=== PATIENT | female | born 1975 | race Caucasian/White ===

== ENCOUNTER 2018-03-17 18:03 | Emergency (ER) | payer BC, MEDICAID ==
[~2018-03-17] VITALS: Ht 170.2 cm; Wt 68.2 kg
[2018-03-17] MEDS ORDERED: dextrose 50%-water 50ml dispensing syringe IV ONE (18:36)
[2018-03-17 18:59] LABS: BASOPHILS % (AUTO) 0.4 % (0-1); EOSINOPHILS # (AUTO) 0.2 X10'3 (0-0.9); EOSINOPHILS % (AUTO) 2.6 % (0-6); HEMATOCRIT 46.4 % (35.0-45.0); HEMOGLOBIN 15.4 g/dl (12.0-16.0); LYMPHOCYTES # (AUTO) 1.6 X10'3 (1.1-4.8); LYMPHOCYTES % (AUTO) 26.4 % (21-51); MEAN CORPUSCULAR HEMOGLOBIN 30.7 PG (27.0-31.0); MEAN CORPUSCULAR HGB CONC 33.1 % (33.0-36.5); MEAN CORPUSCULAR VOLUME 92.7 FL (78-98); MEAN PLATELET VOLUME 7.7 FL (7.4-10.4); MONOCYTES # (AUTO) 0.4 X10'3 (0-0.9); MONOCYTES % (AUTO) 6.1 % (2-12); NEUTROPHILS # (AUTO) 3.9 X10'3 (1.8-7.7); NEUTROPHILS % (AUTO) 64.5 % (42-75); PLATELET COUNT 379 X10'3 (140-440); RED CELL DISTRIBUTION WIDTH 15.7 % (11.5-14.5); WHITE BLOOD COUNT 6.1 X10'3 (4.5-11.0)
[2018-03-17 19:14] LABS: PARTIAL THROMBOPLASTIN TIME 27 SECONDS (22-32)
[2018-03-17 19:23] LABS: ALANINE AMINOTRANSFERASE 75 U/L (12-78); ALBUMIN 4.1 G/DL (3.4-5.0); ALKALINE PHOSPHATASE 53 IU/L (46-116); ANION GAP 14 (8-16); ASPARTATE AMINO TRANSFERASE 120 U/L (10-37); BILIRUBIN,TOTAL 0.5 MG/DL (0.1-1.0); BLOOD UREA NITROGEN 5 MG/DL (7-18); BUN/CREATININE RATIO 8.1 (6.6-38.0); CALCIUM 9.7 MG/DL (8.5-10.1); CHLORIDE 104 MMOL/L (99-107); CREATININE 0.62 MG/DL (0.40-0.90); GLUCOSE 83 MG/DL (70-104); POTASSIUM 3.9 MMOL/L (3.5-5.1); SODIUM 142 MMOL/L (135-145); TOTAL CARBON DIOXIDE 23.7 MMOL/L (24-32); TOTAL PROTEIN 8.2 G/DL (6.4-8.2); eGFR > 90 ML/MIN
[2018-03-17 19:49] LABS: COLOR,URINE YELLOW (Yellow); GLUCOSE, URINE 100 mg/dl (Neg); KETONES,URINE NEGATIVE (Neg); LEUKOCYTE ESTERASE ,URINE NEGATIVE (Neg); NITRITES, URINE POSITIVE (Neg); OCCULT BLOOD,URINE SMALL (Neg); PH,URINE 5.5 (4.8-8.0); PROTEIN,URINE NEGATIVE (Neg); URINE HCG NEGATIVE (NEG); UROBILINOGEN,URINE 0.2 E.U/dL (0.2-1.0)
[2018-03-17 19:57] LABS: CLARITY,URINE SLIGHTLY CLOUDY (Clear); UA COLLECTION TYPE VOIDED
[2018-03-17 19:58] LABS: BACTERIA,URINE 4+ /HPF (Neg); RBC,URINE 0-2 /HPF (0-2); SQUAMOUS EPITHELIAL CELL,UR FEW /LPF (FEW); WBC,URINE 0-4 /HPF (0-4)
[2018-03-17] MEDS ORDERED: normal saline 1000ML IV soln IVB ONE (20:10)
[2018-03-17] MEDS ORDERED: CefTRIAXone 2gm/D5W 50ml 50 ML IV ONE (20:10)
[2018-03-17 20:13] LABS: ACETAMINOPHEN 7.3 UG/ML (10-30); ETHANOL 0.131 GM/DL (0.0-0.010)
[2018-03-17] MEDS ORDERED: CEPH250T PO (20:18)
[2018-03-17 20:21] LABS: URINE AMPHETAMINE SCREEN POSITIVE (Neg); URINE BARBITUATE SCREEN NEGATIVE (Neg); URINE BENZODIAZEPINES SCREEN NEGATIVE (Neg); URINE CANNABINOID SCREEN NEGATIVE (Neg); URINE COCAINE SCREEN NEGATIVE (Neg); URINE METHADONE SCREEN NEGATIVE (Neg); URINE OPIATE SCREEN NEGATIVE (Neg); URINE PHENCYCLIDINE SCREEN NEGATIVE (Neg)
[2018-03-18 05:48] VITALS: BP 124/84
== END 2018-03-18 07:50 | disposition home or self-care (01) ==
LOC: ER 18:03
DX: T45.0X2A Poisoning by antiallergic and antiemetic drugs, intentional self-harm, initial encounter (principal); R45.851 Suicidal ideations; F32.9 Major depressive disorder, single episode, unspecified; F10.129 Alcohol abuse with intoxication, unspecified; N39.0 Urinary tract infection, site not specified; F15.10 Other stimulant abuse, uncomplicated; F41.9 Anxiety disorder, unspecified; Z91.040 Latex allergy status; Y92.9 Unspecified place or not applicable; Y90.0 Blood alcohol level of less than 20 mg/100 ml
CPT/HCPCS: 36415; 80053; 80305; 80320; 80329; 81001; 81025; 82948; 84443; 84484; 85025; 85610; 85730; 87077; 87088; 87186; 93005; 96365; 96375; 99285; J0696; J7030

== ENCOUNTER 2018-07-18 23:47 | Emergency (ER) | payer MEDICAID ==
[~2018-07-18] VITALS: Ht 160 cm; Wt 68.2 kg
[~2018-07-18 23:47] MED LIST: CEPH250T PO
--- NOTE | 2018-07-19 00:03 | NUR ---
SPOKE TO JORDEN AT [facility] - MONITOR FOR S\\S OF SERATONIN SYNDROME SUCH HYPERTHERMIA AND "WEIRD MOVEMENTS". GIVE CHARCOAL IF INGESTION WAS LESS THAN AN HOUR AGO. ORDER FULL LAB WORKUP TO INCLUDE ASA, APAP, ETHANOL. ALSO GET EKG
[2018-07-19] MEDS ORDERED: normal saline 1000ML IV soln IVB ONE (00:15)
--- NOTE | 2018-07-19 00:20 | NUR ---
PT REPORTS SHE IS A DAILY DRINKER AND IS WORRIED SHE WILL GO INTO WITHDRAWL. PT STATES SHE DRINKS "BEER ALL DAY" WILL NOTIFY MD - PT ON MONITORING EQUIPMENT AT THIS TIME SECONDARY TO THE OVERDOSE. VITALS WNL - NO TREMORS NOTED. PT APPEARS DROWSY BUT ABLE TO FOLLOW COMMANDS AND COOPERATIVE WITH STAFF.
[2018-07-19] MEDS ORDERED: SERT100T10 (00:23)
--- NOTE | 2018-07-19 00:34 | NUR ---
[facility] IN ER TO WRITE [id number]
[2018-07-19 00:35] LABS: ALANINE AMINOTRANSFERASE 71 U/L (12-78); ALBUMIN 4.1 G/DL (3.4-5.0); ALKALINE PHOSPHATASE 50 IU/L (46-116); ANION GAP 14 (8-16); ASPARTATE AMINO TRANSFERASE 138 U/L (10-37); BILIRUBIN,TOTAL 0.2 MG/DL (0.1-1.0); BLOOD UREA NITROGEN 10 MG/DL (7-18); BUN/CREATININE RATIO 17.2 (6.6-38.0); CALCIUM 9.2 MG/DL (8.5-10.1); CHLORIDE 101 MMOL/L (99-107); CREATININE 0.58 MG/DL (0.40-0.90); GLUCOSE 95 MG/DL (70-104); POTASSIUM 3.5 MMOL/L (3.5-5.1); SODIUM 141 MMOL/L (135-145); TOTAL CARBON DIOXIDE 26.4 MMOL/L (24-32); TOTAL PROTEIN 8.1 G/DL (6.4-8.2); eGFR > 90 ML/MIN
[2018-07-19 00:42] LABS: URINE HCG NEGATIVE (NEG)
[2018-07-19 00:45] LABS: CLARITY,URINE CLEAR (Clear); COLOR,URINE YELLOW (Yellow); GLUCOSE, URINE NEGATIVE (Neg); KETONES,URINE NEGATIVE (Neg); LEUKOCYTE ESTERASE ,URINE TRACE (Neg); NITRITES, URINE NEGATIVE (Neg); OCCULT BLOOD,URINE TRACE-INTACT (Neg); PH,URINE 5.5 (4.8-8.0); PROTEIN,URINE NEGATIVE (Neg); UROBILINOGEN,URINE 0.2 E.U/dL (0.2-1.0)
[2018-07-19 00:46] LABS: ACETAMINOPHEN < 2.0 UG/ML (10-30); ETHANOL 0.322 GM/DL (0.0-0.010)
[2018-07-19 00:46] LABS: UA COLLECTION TYPE CLN CATCH MIDSTREAM
[2018-07-19 00:48] LABS: BASOPHILS % (AUTO) 0.7 % (0-1); EOSINOPHILS # (AUTO) 0.1 X10'3 (0-0.9); EOSINOPHILS % (AUTO) 3.2 % (0-6); HEMATOCRIT 39.7 % (35.0-45.0); LYMPHOCYTES # (AUTO) 1.3 X10'3 (1.1-4.8); LYMPHOCYTES % (AUTO) 32.5 % (21-51); MEAN CORPUSCULAR HEMOGLOBIN 30.6 PG (27.0-31.0); MEAN CORPUSCULAR HGB CONC 32.8 g/dL (33.0-36.5); MEAN CORPUSCULAR VOLUME 93.5 FL (78-98); MEAN PLATELET VOLUME 7.4 FL (7.4-10.4); MONOCYTES # (AUTO) 0.3 X10'3 (0-0.9); MONOCYTES % (AUTO) 8.3 % (2-12); NEUTROPHILS # (AUTO) 2.3 X10'3 (1.8-7.7); NEUTROPHILS % (AUTO) 55.3 % (42-75); PLATELET COUNT 286 X10'3 (140-440); RED BLOOD COUNT 4.25 X10'6 (4.20-5.60); RED CELL DISTRIBUTION WIDTH 17.4 % (11.5-14.5); WHITE BLOOD COUNT 4.1 X10'3 (4.5-11.0)
[2018-07-19 00:52] LABS: BACTERIA,URINE 3+ /HPF (Neg); RBC,URINE NONE SEEN /HPF (0-2); URINE AMPHETAMINE SCREEN NEGATIVE (Neg); URINE BARBITUATE SCREEN NEGATIVE (Neg); URINE BENZODIAZEPINES SCREEN NEGATIVE (Neg); URINE CANNABINOID SCREEN NEGATIVE (Neg); URINE COCAINE SCREEN NEGATIVE (Neg); URINE METHADONE SCREEN NEGATIVE (Neg); URINE OPIATE SCREEN NEGATIVE (Neg); URINE PHENCYCLIDINE SCREEN NEGATIVE (Neg); WBC,URINE 0-4 /HPF (0-4)
[2018-07-19 00:53] LABS: SQUAMOUS EPITHELIAL CELL,UR FEW /LPF (FEW)
--- NOTE | 2018-07-19 01:00 | NUR ---
patient in bed eyes closed hard to arouse, will wait for tele psych when patient is awake and oriented, patient rr even un labored no observable s/s of acute stress at this time
[2018-07-19] MEDS ORDERED: charcoal/sorbitol 50gm/240ml suspension PO ONE (01:05)
[2018-07-19] MEDS ORDERED: ondansetron/PF 4mg/2ml inj IV ONE (01:05)
--- NOTE | 2018-07-19 03:20 | NUR ---
patient in bed covers on eyes closed rr even un labored hard to arouse no observable s/s of acute stress at this time
--- NOTE | 2018-07-19 04:31 | NUR ---
patient still hard to arouse, rr even un labored no observable s/s of acute stress at this time
--- NOTE | 2018-07-19 05:25 | NUR ---
PT REQUESTING TO HAVE IV REMOVED AND SOMETHING TO EAT. PT GIVEN JUICE AND CHEESE STICK AND TOLD BREAKFAST WILL BE SERVED IN A COUPLE OF HOURS. SAID IV WAS OK TO BE D\C'D.
--- NOTE | 2018-07-19 05:30 | NUR ---
PATIENT AWAKE AND ORIENTED INITIATED TELE PSYCH CONSULE
--- NOTE | 2018-07-19 05:58 | NUR ---
TELE PSYCH MONITER IN ROOM TURNED ON WAITING FOR
--- NOTE | 2018-07-19 06:53 | NUR ---
Patient sleeping in [address]. No distress observed. Patient is awaiting Telepsych Consult.
--- NOTE | 2018-07-19 09:00 | NUR ---
Patient received Vegetarian tray. No distress observed. Continue to monitor.
[2018-07-19] MEDS ORDERED: chlordiazePOXIDE 25mg capsule PO ONE ×2 (09:45→12:45)
--- NOTE | 2018-07-19 09:55 | NUR ---
Patient suddenly c/o of ETOH withdrawal and shaking. Patient still has ETOH in system, about 0.125. Patient requesting medication. RN spoke to BECKA Choudhary and received order for Librium 25 mg. Will reassess in 4-6 hours. Med given. Continue to monitor.
--- NOTE | 2018-07-19 10:40 | NUR ---
Patient feeling better post medication. Patient supine in bed. Continue to monitor.
--- NOTE | 2018-07-19 11:38 | NUR ---
BOYFRIEND AT BEDSIDE WITH PT
--- NOTE | 2018-07-19 12:24 | NUR ---
Patient getting cleaned up in BR. Patient ambulatory to BR, steady gait.
[2018-07-19] MEDS ORDERED: loperamide 2mg capsule PO PRN ×2 (12:45)
[2018-07-19] MEDS ORDERED: cyclobenzaprine 10mg tablet PO PRN (12:45)
[2018-07-19] MEDS ORDERED: dicyclomine 10 MG capsule PO PRN (12:45)
[2018-07-19] MEDS ORDERED: folic acid 1mg tablet PO SCH (12:45)
[2018-07-19] MEDS ORDERED: LORazepam 1 MG tablet PO PRN (12:45)
[2018-07-19] MEDS ORDERED: haloperidol lactate 5mg/ml inj IM PRN (12:45)
[2018-07-19] MEDS ORDERED: cloNIDine 0.1 mg tablet PO PRN (12:45)
[2018-07-19] MEDS ORDERED: mag hydrox/Alum hydrox/simeth 30ml oral suspension PO PRN (12:45)
[2018-07-19] MEDS ORDERED: thiamine 100mg tablet PO SCH (12:45)
[2018-07-19] MEDS ORDERED: haloperidol 5mg tablet PO PRN (12:45)
--- NOTE | 2018-07-19 13:15 | NUR ---
RELIEVING RN FOR LUNCH, LUNCH TRAY AT BEDSIDE, MEDICATED PER MD ORDER, PT IS CALM AND COOPERATIVE, HANDS ARE SHAKY, PT SAID SHE IS GOING THROUGH ETOH WITHDRAWAL
--- NOTE | 2018-07-19 14:26 | NUR ---
Patient sleeping on right side. No distress observed. Continue to monitor.
--- NOTE | 2018-07-19 16:13 | NUR ---
Patient resting with her eyes closed and laying on left side. RN asked patient how she was doing. Patient denies needing medication at this time. RN advised patient to tell RN as soon as she feels she needs medication. Patient verbalized understanding.
[2018-07-19 17:47] VITALS: BP 148/105
[2018-07-19] MEDS ORDERED: GABA-532 PO (18:23)
--- NOTE | 2018-07-19 19:02 | NUR ---
PT WAS GIVEN HER PERSONAL BELONGINGS BAG TO CHANGE INTO HER CLOTHES. AT BEDSIDED. PT IS GETTING READY TO BE DC'D.
--- NOTE | 2018-07-19 19:31 | NUR ---
PT'S BOYFRIEND ZAC . I CSPOLE WITH ZAC AND LET HIM KNOW THAT [facility] HAS MEDICATIONS IN THE PHARMECY THAT NEED TO BE PICKED UP, HE REPORTED THEY WILL COM GET THE MEDS TOMORROW.
[2018-07-20] MEDS ORDERED: multivitamins, therapeutics tablet PO SCH (08:00)
== END 2018-07-19 19:10 ==
LOC: ER 23:47
DX: T43.222A Poisoning by selective serotonin reuptake inhibitors, intentional self-harm, initial encounter (principal); F10.129 Alcohol abuse with intoxication, unspecified; F41.9 Anxiety disorder, unspecified; F32.9 Major depressive disorder, single episode, unspecified; F15.90 Other stimulant use, unspecified, uncomplicated; Z91.040 Latex allergy status; Z79.899 Other long term (current) drug therapy; Y90.0 Blood alcohol level of less than 20 mg/100 ml; Y92.89 Other specified places as the place of occurrence of the external cause
CPT/HCPCS: 36415; 80053; 80305; 80320; 80329; 81001; 81025; 84443; 85025; 87077; 87088; 87186; 93005; 99285; J7030

== ENCOUNTER 2018-08-04 10:22 | Emergency (ER) | payer MEDICAID ==
[~2018-08-04] VITALS: Ht 160 cm; Wt 72.7 kg
[~2018-08-04 10:22] MED LIST changes: -CEPH250T PO; +GABA-532 PO; +SERT100T10
[2018-08-04] MEDS ORDERED: LORazepam 2 mg/ml vial IM ONE (11:25)
[2018-08-04 12:04] LABS: BASOPHILS # (AUTO) 0.1 X10'3 (0-0.2); BASOPHILS % (AUTO) 1.4 % (0-1); EOSINOPHILS # (AUTO) 0.1 X10'3 (0-0.9); EOSINOPHILS % (AUTO) 1.8 % (0-6); HEMATOCRIT 43.5 % (35.0-45.0); HEMOGLOBIN 14.2 g/dl (12.0-16.0); LYMPHOCYTES # (AUTO) 1.3 X10'3 (1.1-4.8); LYMPHOCYTES % (AUTO) 25.8 % (21-51); MEAN CORPUSCULAR HEMOGLOBIN 29.7 PG (27.0-31.0); MEAN CORPUSCULAR HGB CONC 32.7 g/dL (33.0-36.5); MEAN CORPUSCULAR VOLUME 90.8 FL (78-98); MONOCYTES # (AUTO) 0.2 X10'3 (0-0.9); MONOCYTES % (AUTO) 3.6 % (2-12); NEUTROPHILS # (AUTO) 3.4 X10'3 (1.8-7.7); NEUTROPHILS % (AUTO) 67.4 % (42-75); PLATELET COUNT 478 X10'3 (140-440); RED BLOOD COUNT 4.79 X10'6 (4.20-5.60); RED CELL DISTRIBUTION WIDTH 17.3 % (11.5-14.5); WHITE BLOOD COUNT 5.1 X10'3 (4.5-11.0)
[2018-08-04 12:41] LABS: ETHANOL 0.334 GM/DL (0.0-0.010)
[2018-08-04 12:51] LABS: ALANINE AMINOTRANSFERASE 97 U/L (12-78); ALBUMIN 4.5 G/DL (3.4-5.0); ALBUMIN/GLOBULIN RATIO 1.1 (1.1-1.5); ALKALINE PHOSPHATASE 55 IU/L (46-116); ANION GAP 19 (8-16); ASPARTATE AMINO TRANSFERASE 153 U/L (10-37); BILIRUBIN,TOTAL 0.4 MG/DL (0.1-1.0); BLOOD UREA NITROGEN 9 MG/DL (7-18); CALCIUM 9.4 MG/DL (8.5-10.1); CHLORIDE 100 MMOL/L (99-107); GLUCOSE 74 MG/DL (70-104); POTASSIUM 3.7 MMOL/L (3.5-5.1); SODIUM 141 MMOL/L (135-145); TOTAL CARBON DIOXIDE 22.2 MMOL/L (24-32); TOTAL PROTEIN 8.6 G/DL (6.4-8.2); eGFR > 90 ML/MIN
[2018-08-04 13:54] LABS: URINE HCG NEGATIVE (NEG)
[2018-08-04 13:55] LABS: CLARITY,URINE CLOUDY (Clear); COLOR,URINE YELLOW (Yellow); GLUCOSE, URINE NEGATIVE (Neg); KETONES,URINE >=80 mg/dl (Neg); LEUKOCYTE ESTERASE ,URINE SMALL (Neg); NITRITES, URINE POSITIVE (Neg); OCCULT BLOOD,URINE SMALL (Neg); PROTEIN,URINE 30 mg/dl (Neg); UROBILINOGEN,URINE 0.2 E.U/dL (0.2-1.0)
[2018-08-04 14:05] LABS: UA COLLECTION TYPE CLN CATCH MIDSTREAM; URINE AMPHETAMINE SCREEN NEGATIVE (Neg); URINE BARBITUATE SCREEN NEGATIVE (Neg); URINE BENZODIAZEPINES SCREEN POSITIVE (Neg); URINE CANNABINOID SCREEN NEGATIVE (Neg); URINE COCAINE SCREEN NEGATIVE (Neg); URINE METHADONE SCREEN NEGATIVE (Neg); URINE OPIATE SCREEN NEGATIVE (Neg); URINE PHENCYCLIDINE SCREEN NEGATIVE (Neg)
[2018-08-04 14:27] LABS: BACTERIA,URINE 4+ /HPF (Neg); MUCUS STRANDS FEW /LPF (Neg); SQUAMOUS EPITHELIAL CELL,UR MANY /LPF (FEW); WBC CLUMPS,URINE FEW /HPF (NEGATIVE); WBC,URINE 50-100 /HPF (0-4)
[2018-08-04] MEDS ORDERED: sulfamethoxazole/trimethoprim DS (800/160mg) tablet PO SCH (14:35)
--- NOTE | 2018-08-04 15:10 | NUR ---
Discussed need for antibiotics with patient. Pt states that she is allergic to Bactrim, and the only abx that she tolerates is Amoxicillin. BECKA Delong notified, and states he will change the order to a different abx.
--- NOTE | 2018-08-04 15:54 | NUR ---
Pt states that she is feeling anxious, and her heart is "racing". Pt is diaphoretic. Mother at bedside voicing concerns of alcohol withdrawal. BECKA Delong notified, will await orders.
[2018-08-04] MEDS ORDERED: normal saline 1000ML IV soln IVB ONE (15:55)
[2018-08-04] MEDS ORDERED: folic acid 1mg/0.2ml inj IV ONE (15:55)
[2018-08-04] MEDS ORDERED: LORazepam 2 mg/ml vial IV ONE (15:55)
[2018-08-04] MEDS ORDERED: thiamine 100mg/ml 2ml inj. IV ONE (15:55)
[2018-08-04] MEDS: cephalexin 250mg capsule PO SCH ×2 (16:55→21:36)
[2018-08-04 17:56] VITALS: BP 133/85
--- NOTE | 2018-08-04 19:46 | NUR ---
telepsych consult initiated.
[2018-08-04] MEDS ORDERED: NITR100C6 PO (21:54)
== END 2018-08-04 22:24 | disposition home or self-care (01) ==
LOC: ER 10:25
DX: F10.129 Alcohol abuse with intoxication, unspecified (principal); F32.9 Major depressive disorder, single episode, unspecified; F15.10 Other stimulant abuse, uncomplicated; N39.0 Urinary tract infection, site not specified; R45.851 Suicidal ideations; F41.9 Anxiety disorder, unspecified; Z88.2 Allergy status to sulfonamides; Z91.040 Latex allergy status; Z79.899 Other long term (current) drug therapy
CPT/HCPCS: 36415; 80053; 80305; 80320; 81001; 81025; 84443; 85025; 96374; 96375; 99284; J2060; J3411; J3490; J7030

== ENCOUNTER 2018-11-08 14:14 | Emergency (ER) | payer MEDICAID ==
[~2018-11-08] VITALS: Ht 160 cm; Wt 72.0 kg
[~2018-11-08 14:14] MED LIST changes: +NITR100C6 PO
--- NOTE | 2018-11-08 14:40 | NUR ---
pt is very uncooperative, cussing at staff "fuck you...I want my blanket and I am not giving it to you", security paged to standby, pt also tore name band off, then took her clothes off and threw on the floor, pt is also refusing to answer questions, able to have pt change into green scrubs, gave pt warm blanket
--- NOTE | 2018-11-08 14:52 | NUR ---
pt attempting to elope, security paged, pt cussing "fuck you...shut the fuck up", able to redirect pt back to room 16 and closed doors because pt was saying it was too loud. Pt tore name band off again
--- NOTE | 2018-11-08 15:10 | NUR ---
Manuela Aparicio, mother, and Chai, dad, , Abbey is a close family friend, [phone]. Family is aware of plan of care, visiting hours, going to home for now as pt said she doesn't want any visitors, pt is now resting quietly on gurney, calm and cooperative
[2018-11-08 15:29] LABS: BASOPHILS # (AUTO) 0.1 X10'3 (0-0.2); BASOPHILS % (AUTO) 1.2 % (0-1); EOSINOPHILS % (AUTO) 0.3 % (0-6); HEMOGLOBIN 13.9 g/dl (12.0-16.0); LYMPHOCYTES % (AUTO) 23.4 % (21-51); MEAN CORPUSCULAR HEMOGLOBIN 29.6 PG (27.0-31.0); MEAN CORPUSCULAR HGB CONC 33.1 g/dL (33.0-36.5); MEAN CORPUSCULAR VOLUME 89.2 FL (78-98); MEAN PLATELET VOLUME 6.8 FL (7.4-10.4); MONOCYTES # (AUTO) 0.3 X10'3 (0-0.9); MONOCYTES % (AUTO) 3.3 % (2-12); NEUTROPHILS % (AUTO) 71.8 % (42-75); PLATELET COUNT 466 X10'3 (140-440); RED BLOOD COUNT 4.71 X10'6 (4.20-5.60); RED CELL DISTRIBUTION WIDTH 20.2 % (11.5-14.5); WHITE BLOOD COUNT 8.4 X10'3 (4.5-11.0)
[2018-11-08 15:43] LABS: ALANINE AMINOTRANSFERASE 40 U/L (12-78); ALBUMIN 3.8 G/DL (3.4-5.0); ALBUMIN/GLOBULIN RATIO 0.9 (1.1-1.5); ALKALINE PHOSPHATASE 60 IU/L (46-116); ANION GAP 19 (8-16); ASPARTATE AMINO TRANSFERASE 73 U/L (10-37); BILIRUBIN,TOTAL 0.4 MG/DL (0.1-1.0); BLOOD UREA NITROGEN 15 MG/DL (7-18); BUN/CREATININE RATIO 23.1 (6.6-38.0); CALCIUM 8.2 MG/DL (8.5-10.1); CHLORIDE 105 MMOL/L (99-107); CREATININE 0.65 MG/DL (0.40-0.90); GLUCOSE 85 MG/DL (70-104); SODIUM 142 MMOL/L (135-145); TOTAL CARBON DIOXIDE 17.7 MMOL/L (24-32); TOTAL PROTEIN 7.9 G/DL (6.4-8.2); eGFR > 90 ML/MIN
[2018-11-08 15:54] LABS: ETHANOL 0.305 GM/DL (0.0-0.010)
[2018-11-08] MEDS ORDERED: LORazepam 2 mg/ml vial IV ONE (16:25)
[2018-11-08] MEDS ORDERED: folic acid 1mg/0.2ml inj IV ONE (16:25)
[2018-11-08] MEDS ORDERED: thiamine 100mg/ml 2ml inj. IV ONE (16:25)
[2018-11-08] MEDS ORDERED: normal saline 1000ML IV soln IVB ONE (16:25)
--- NOTE | 2018-11-08 18:25 | NUR ---
pt moved to overflow
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
[2018-11-08 21:03] LABS: CLARITY,URINE CLEAR (Clear); COLOR,URINE YELLOW (Yellow); GLUCOSE, URINE NEGATIVE (Neg); KETONES,URINE >=80 mg/dl (Neg); LEUKOCYTE ESTERASE ,URINE NEGATIVE (Neg); NITRITES, URINE NEGATIVE (Neg); OCCULT BLOOD,URINE SMALL (Neg); PROTEIN,URINE NEGATIVE (Neg); UA COLLECTION TYPE CLN CATCH MIDSTREAM
[2018-11-08 21:04] LABS: URINE HCG NEGATIVE (NEG)
[2018-11-08 21:12] LABS: BACTERIA,URINE 2+ /HPF (Neg); MUCUS STRANDS NONE SEEN /LPF (Neg); RBC,URINE 0-2 /HPF (0-2); SQUAMOUS EPITHELIAL CELL,UR MANY /LPF (FEW); WBC,URINE 0-4 /HPF (0-4)
[2018-11-08 21:15] LABS: URINE AMPHETAMINE SCREEN NEGATIVE (Neg); URINE BARBITUATE SCREEN NEGATIVE (Neg); URINE BENZODIAZEPINES SCREEN NEGATIVE (Neg); URINE CANNABINOID SCREEN POSITIVE (Neg); URINE COCAINE SCREEN NEGATIVE (Neg); URINE METHADONE SCREEN NEGATIVE (Neg); URINE OPIATE SCREEN NEGATIVE (Neg); URINE PHENCYCLIDINE SCREEN NEGATIVE (Neg)
--- NOTE | 2018-11-08 21:47 | NUR ---
The patient appears to be asleep
[2018-11-08] MEDS ORDERED: LORazepam 1 MG tablet PO ONE (22:50)
--- NOTE | 2018-11-08 22:50 | NUR ---
The patient is awake and complaining of high anxiety with chest pain. Patient states chest pain from anxiety and there are no other associated s/s of cardiac issue. THe patients HR is 100 and her BP is 124/77. Dr. Alcocer made aware of patient reports of chest pain, anxiety, and etoh use. Orders received.
[2018-11-08] MEDS ORDERED: ondansetron 4mg rapidly disintigrating tab PO ONE (23:10)
--- NOTE | 2018-11-09 01:04 | NUR ---
The patient appears to be asleep
--- NOTE | 2018-11-09 03:05 | NUR ---
The patient appears to be asleep
[2018-11-09 05:57] VITALS: BP 126/75
[2018-11-09] MEDS ORDERED: ARIP5TAB4 PO ×2 (11:00→15:06)
[2018-11-09] MEDS ORDERED: ondansetron/PF 4mg/2ml inj IM ONE (13:45)
--- NOTE | 2018-11-09 14:30 | NUR ---
pt up using phone to set up counseling appointment, pt father called for update, pt agrees that it is ok to give father information. father refused to speak with pt after update.
[2018-11-09] MEDS ORDERED: AMOX-580 PO (21:56)
== END 2018-11-09 16:16 ==
LOC: ER 14:14
DX: F31.89 Other bipolar disorder (principal); R45.851 Suicidal ideations; F10.229 Alcohol dependence with intoxication, unspecified; F41.9 Anxiety disorder, unspecified; F15.90 Other stimulant use, unspecified, uncomplicated; Z88.2 Allergy status to sulfonamides; Z88.8 Allergy status to other drugs, medicaments and biological substances; Z91.040 Latex allergy status; Z79.899 Other long term (current) drug therapy; Y90.0 Blood alcohol level of less than 20 mg/100 ml
CPT/HCPCS: 36415; 80053; 80305; 80320; 81001; 81025; 84443; 85025; 96372; 96374; 96375; 99284; J2060; J2405; J3411; J3490; J7030

== ENCOUNTER 2018-11-09 19:36 | Emergency (ER) | payer MEDICAID ==
[~2018-11-09] VITALS: Ht 160 cm; Wt 72.0 kg
[~2018-11-09 19:36] MED LIST changes: +ARIP5TAB4 PO; -GABA-532 PO; -NITR100C6 PO; -SERT100T10
--- NOTE | 2018-11-09 20:01 | NUR ---
Dr Simon at bedside to evaluate pt, pt was compliant with opening mouth,
--- NOTE | 2018-11-09 20:06 | NUR ---
pt is refusing to keep pulse ox on, resp even and unlabored
[2018-11-09 20:30] LABS: ABG BASE EXCESS -10.6 mmol/L (-2.0-3.0); ABG HCO3 14.3 mmol/L (22.0-26.0); ABG OXYGEN SATURATION 95.9 % (95-98); ABG PCO2 (T) 29.5 mmHg (32.0-45.0); ABG PH (T) 7.303 (7.350-7.450); ABG PO2 (T) 93.1 mmHg (83-108); ALLEN'S TEST Positive; FCOHb 4.2 % (0.5-1.5); FMetHb 0.2 % (0.3-1.12); FO2Hb 91.7 % (94-100); TOTAL HEMOGLOBIN 13.5 G/dl (12.0-16.0)
[2018-11-09 20:52] LABS: BASOPHILS % (AUTO) 0.3 % (0-1); EOSINOPHILS % (AUTO) 0.1 % (0-6); HEMATOCRIT 39.5 % (35.0-45.0); HEMOGLOBIN 12.7 g/dl (12.0-16.0); LYMPHOCYTES # (AUTO) 0.7 X10'3 (1.1-4.8); LYMPHOCYTES % (AUTO) 5.6 % (21-51); MEAN CORPUSCULAR HEMOGLOBIN 29.2 PG (27.0-31.0); MEAN CORPUSCULAR HGB CONC 32.2 g/dL (33.0-36.5); MEAN CORPUSCULAR VOLUME 90.5 FL (78-98); MEAN PLATELET VOLUME 7.2 FL (7.4-10.4); MONOCYTES # (AUTO) 0.6 X10'3 (0-0.9); MONOCYTES % (AUTO) 4.5 % (2-12); NEUTROPHILS # (AUTO) 11.7 X10'3 (1.8-7.7); NEUTROPHILS % (AUTO) 89.5 % (42-75); PLATELET COUNT 440 X10'3 (140-440); RED BLOOD COUNT 4.36 X10'6 (4.20-5.60); RED CELL DISTRIBUTION WIDTH 19.8 % (11.5-14.5); WHITE BLOOD COUNT 13.1 X10'3 (4.5-11.0)
[2018-11-09 21:07] LABS: ALANINE AMINOTRANSFERASE 36 U/L (12-78); ALBUMIN 3.8 G/DL (3.4-5.0); ALBUMIN/GLOBULIN RATIO 0.9 (1.1-1.5); ALKALINE PHOSPHATASE 60 IU/L (46-116); ANION GAP 22 (8-16); ASPARTATE AMINO TRANSFERASE 52 U/L (10-37); BILIRUBIN,TOTAL 0.5 MG/DL (0.1-1.0); BLOOD UREA NITROGEN 7 MG/DL (7-18); BUN/CREATININE RATIO 9.6 (6.6-38.0); CHLORIDE 103 MMOL/L (99-107); CREATINE KINASE 191 U/L (26-192); CREATININE 0.73 MG/DL (0.40-0.90); ETHANOL 0.252 GM/DL (0.0-0.010); GLUCOSE 117 MG/DL (70-104); LIPASE 240 U/L (73-393); POTASSIUM 3.5 MMOL/L (3.5-5.1); SODIUM 140 MMOL/L (135-145); TOTAL CARBON DIOXIDE 15.3 MMOL/L (24-32); TOTAL PROTEIN 7.9 G/DL (6.4-8.2); TROPONIN I < 0.04 NG/ML (0.0-0.05); eGFR 87 ML/MIN
[2018-11-09] MEDS ORDERED: TETanus/Pertussis (Acell)/Diphther VAC/PF (Tdap-Adult) 0.5ml syringe IMVAC ONE (21:25)
[2018-11-09] MEDS ORDERED: amox tr/potassium clavulanate 875/125mg TAB PO ONE (21:25)
[2018-11-09] MEDS ORDERED: AMOX-580 PO (21:56)
[2018-11-09 22:07] VITALS: BP 149/98
[2018-11-09 22:07] LABS: ANISOCYTOSIS 2+; PLATELET ESTIMATE NORMAL
== END 2018-11-09 22:08 ==
LOC: ER 19:37
DX: S81.831A Puncture wound without foreign body, right lower leg, initial encounter (principal); S20.222A Contusion of left back wall of thorax, initial encounter; F10.129 Alcohol abuse with intoxication, unspecified; J70.5 Respiratory conditions due to smoke inhalation; F41.9 Anxiety disorder, unspecified; F32.9 Major depressive disorder, single episode, unspecified; F15.90 Other stimulant use, unspecified, uncomplicated; Z88.2 Allergy status to sulfonamides; Z91.040 Latex allergy status; Z88.8 Allergy status to other drugs, medicaments and biological substances; Z79.899 Other long term (current) drug therapy; W54.0XXA Bitten by dog, initial encounter; Y93.89 Activity, other specified; Y92.89 Other specified places as the place of occurrence of the external cause; Y99.8 Other external cause status; Y90.0 Blood alcohol level of less than 20 mg/100 ml
CPT/HCPCS: 36415; 36600; 71045; 73590; 80053; 80320; 82550; 82803; 83690; 84484; 85018; 85025; 85610; 90471; 93005; 99284

== ENCOUNTER 2019-03-05 09:47 | Emergency (ER) | payer MEDICAID ==
[~2019-03-05] VITALS: Ht 160 cm; Wt 81.8 kg
[~2019-03-05 09:47] MED LIST changes: +ARIP5TAB14 PO; -ARIP5TAB4 PO
--- NOTE | 2019-03-05 10:35 | NUR ---
PT REPORTS CHEST PAIN 0/10
[2019-03-05 10:42] LABS: EOSINOPHILS # (AUTO) 0.1 X10'3 (0-0.9); EOSINOPHILS % (AUTO) 2.5 % (0-6); HEMATOCRIT 35.1 % (35.0-45.0); HEMOGLOBIN 11.3 g/dl (12.0-16.0); LYMPHOCYTES # (AUTO) 1.3 X10'3 (1.1-4.8); LYMPHOCYTES % (AUTO) 28.6 % (21-51); MEAN CORPUSCULAR HEMOGLOBIN 27.2 PG (27.0-31.0); MEAN CORPUSCULAR HGB CONC 32.3 g/dL (33.0-36.5); MEAN CORPUSCULAR VOLUME 84.3 FL (78-98); MEAN PLATELET VOLUME 7.5 FL (7.4-10.4); MONOCYTES # (AUTO) 0.3 X10'3 (0-0.9); MONOCYTES % (AUTO) 7.5 % (2-12); NEUTROPHILS # (AUTO) 2.8 X10'3 (1.8-7.7); NEUTROPHILS % (AUTO) 60.4 % (42-75); PLATELET COUNT 400 X10'3 (140-440); RED BLOOD COUNT 4.16 X10'6 (4.20-5.60); RED CELL DISTRIBUTION WIDTH 16.8 % (11.5-14.5); WHITE BLOOD COUNT 4.6 X10'3 (4.5-11.0)
[2019-03-05 10:57] LABS: ALANINE AMINOTRANSFERASE 25 U/L (12-78); ALBUMIN 3.6 G/DL (3.4-5.0); ALBUMIN/GLOBULIN RATIO 0.9 (1.1-1.5); ALKALINE PHOSPHATASE 66 IU/L (46-116); ANION GAP 8 (8-16); ASPARTATE AMINO TRANSFERASE 25 U/L (10-37); BILIRUBIN,TOTAL 0.3 MG/DL (0.1-1.0); BLOOD UREA NITROGEN 10 MG/DL (7-18); CALCIUM 9.2 MG/DL (8.5-10.1); CHLORIDE 108 MMOL/L (99-107); CREATININE 0.77 MG/DL (0.40-0.90); POTASSIUM 3.5 MMOL/L (3.5-5.1); SODIUM 144 MMOL/L (135-145); TOTAL CARBON DIOXIDE 28.2 MMOL/L (24-32); TOTAL PROTEIN 7.6 G/DL (6.4-8.2); eGFR 81 ML/MIN
[2019-03-05 11:13] LABS: CLARITY,URINE CLEAR (Clear); COLOR,URINE YELLOW (Yellow); GLUCOSE, URINE 100 mg/dl (Neg); KETONES,URINE NEGATIVE (Neg); LEUKOCYTE ESTERASE ,URINE NEGATIVE (Neg); NITRITES, URINE NEGATIVE (Neg); OCCULT BLOOD,URINE NEGATIVE (Neg); PH,URINE 6.5 (4.8-8.0); PROTEIN,URINE NEGATIVE (Neg); UA COLLECTION TYPE VOIDED
[2019-03-05 11:19] LABS: GLUCOSE 36 MG/DL (70-104)
[2019-03-05] MEDS ORDERED: dextrose 50%-water 50ml dispensing syringe IV ONE (11:22)
--- NOTE | 2019-03-05 11:24 | NUR ---
OK PER BECKA ARRIAGA, BEDSIDE BG 63, PT TO HAVE 2 JUICES AND CRACKERS.
[2019-03-05 12:12] VITALS: BP 127/52
== END 2019-03-05 12:20 | disposition home or self-care (01) ==
LOC: ER 09:48
DX: R07.89 Other chest pain (principal); F41.9 Anxiety disorder, unspecified; E16.2 Hypoglycemia, unspecified; F32.9 Major depressive disorder, single episode, unspecified; F10.10 Alcohol abuse, uncomplicated; F15.90 Other stimulant use, unspecified, uncomplicated; Z88.2 Allergy status to sulfonamides; Z88.8 Allergy status to other drugs, medicaments and biological substances; Z91.040 Latex allergy status; Z79.899 Other long term (current) drug therapy; Y90.9 Presence of alcohol in blood, level not specified
CPT/HCPCS: 36415; 71045; 80053; 81003; 82948; 84484; 85025; 93005; 99284

== ENCOUNTER 2020-06-30 15:31 | Emergency (ER) | payer MEDICAID ==
[~2020-06-30] VITALS: Ht 160 cm; Wt 74.3 kg
[2020-06-30 17:55] LABS: BASOPHILS % (AUTO) 0.5 % (0-1); EOSINOPHILS % (AUTO) 0.7 % (0-6); HEMOGLOBIN 14.8 g/dl (12.0-16.0); LYMPHOCYTES # (AUTO) 1.3 X10'3 (1.1-4.8); LYMPHOCYTES % (AUTO) 22.9 % (21-51); MEAN CORPUSCULAR HEMOGLOBIN 30.8 PG (27.0-31.0); MEAN CORPUSCULAR HGB CONC 33.6 g/dL (33.0-36.5); MEAN CORPUSCULAR VOLUME 91.7 FL (78-98); MEAN PLATELET VOLUME 7.4 FL (7.4-10.4); MONOCYTES # (AUTO) 0.3 X10'3 (0-0.9); MONOCYTES % (AUTO) 4.6 % (2-12); NEUTROPHILS # (AUTO) 4.2 X10'3 (1.8-7.7); NEUTROPHILS % (AUTO) 71.3 % (42-75); PLATELET COUNT 288 X10'3 (140-440); RED CELL DISTRIBUTION WIDTH 16.7 % (11.5-14.5); WHITE BLOOD COUNT 5.9 X10'3 (4.5-11.0)
[2020-06-30 18:04] LABS: ALANINE AMINOTRANSFERASE 96 U/L (12-78); ALBUMIN 3.9 G/DL (3.4-5.0); ALKALINE PHOSPHATASE 57 IU/L (46-116); ANION GAP 13 (8-16); ASPARTATE AMINO TRANSFERASE 161 U/L (10-37); BILIRUBIN,TOTAL 0.4 MG/DL (0.1-1.0); BLOOD UREA NITROGEN 9 MG/DL (7-18); BUN/CREATININE RATIO 16.7 (6.6-38.0); CALCIUM 8.2 MG/DL (8.5-10.1); CHLORIDE 102 MMOL/L (99-107); CREATININE 0.54 MG/DL (0.40-0.90); GLUCOSE 108 MG/DL (70-104); SODIUM 138 MMOL/L (135-145); TOTAL CARBON DIOXIDE 23.4 MMOL/L (24-32); TOTAL PROTEIN 7.7 G/DL (6.4-8.2); eGFR > 90 ML/MIN
[2020-06-30] MEDS ORDERED: potassium Cl 20 mEq SR tablet PO STA (18:17)
[2020-06-30] MEDS ORDERED: folic acid 1mg/0.2ml inj IV ONE (18:20)
[2020-06-30] MEDS ORDERED: normal saline 1000ML IV soln IVB ONE (18:20)
[2020-06-30] MEDS ORDERED: thiamine 100mg/ml 2ml inj. IV ONE (18:20)
[2020-06-30] MEDS ORDERED: ondansetron/PF 4mg/2ml inj IV ONE (18:20)
[2020-06-30 18:23] LABS: ETHANOL 0.389 GM/DL (0.0-0.010)
[2020-06-30 18:26] LABS: CLARITY,URINE SLIGHTLY CLOUDY (Clear); COLOR,URINE STRAW (Yellow); GLUCOSE, URINE NEGATIVE (Neg); KETONES,URINE NEGATIVE (Neg); LEUKOCYTE ESTERASE ,URINE SMALL (Neg); NITRITES, URINE NEGATIVE (Neg); OCCULT BLOOD,URINE TRACE-INTACT (Neg); PROTEIN,URINE NEGATIVE (Neg); URINE HCG NEGATIVE (NEG); UROBILINOGEN,URINE 0.2 E.U/dL (0.2-1.0)
[2020-06-30 18:31] LABS: UA COLLECTION TYPE CLN CATCH MIDSTREAM
[2020-06-30 18:32] LABS: HYALINE CASTS 0-3 /LPF (NEGATIVE); SQUAMOUS EPITHELIAL CELL,UR MANY /LPF (FEW)
[2020-06-30 18:34] LABS: BACTERIA,URINE FEW /HPF (Neg); RBC,URINE 0-2 /HPF (0-2); TRANSITIONAL EPI CELLS,URINE FEW /HPF; TRICHOMONAS,URINE FEW /HPF (NEGATIVE); WBC,URINE 0-4 /HPF (0-4)
[2020-06-30 18:35] LABS: CAL OXALATE CRYSTALS FEW /HPF (NEGATIVE)
[2020-06-30 18:36] LABS: AMORPHOUS URATES 1+
[2020-06-30 18:37] LABS: URINE AMPHETAMINE SCREEN NEGATIVE (Neg); URINE BARBITUATE SCREEN NEGATIVE (Neg); URINE BENZODIAZEPINES SCREEN NEGATIVE (Neg); URINE CANNABINOID SCREEN NEGATIVE (Neg); URINE COCAINE SCREEN NEGATIVE (Neg); URINE METHADONE SCREEN NEGATIVE (Neg); URINE OPIATE SCREEN NEGATIVE (Neg); URINE PHENCYCLIDINE SCREEN NEGATIVE (Neg)
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
[2020-06-30] MEDS ORDERED: NO HOME MEDS (20:59)
--- NOTE | 2020-06-30 21:32 | NUR ---
pt laying on her left side, sleeping comfortably RR 18 even and unlabored.
--- NOTE | 2020-06-30 23:13 | NUR ---
Pt is awake, she is upset saying she doesnt know who brought her into the hospital, doesnt know who has her keys and doesnt know where her car is. She states her parents told her that if she screws up again she can't stay in the trailer on their property anymore. Suggested patient attempt to get some sleep and follow up with her family in the morning.
[2020-07-01] MEDS ORDERED: LORazepam 1 MG tablet PO ONE (00:35)
[2020-07-01] MEDS ORDERED: ondansetron 4mg rapidly disintigrating tab PO ONE (00:45)
--- NOTE | 2020-07-01 00:47 | NUR ---
pt up to use the bathroom and vomited. Pt is sweating, tremulous and anxious. Pt states she is hearing a [place] and everything is bothering her. Ativan 1mg and Zofran 8mg given.
--- NOTE | 2020-07-01 01:58 | NUR ---
pt is laying on her left side resting comfortably. Pt was waken for another set of vitals, pt reports she continues to have tremors, and is somewhat diaphoretic, but is no longer having AH or N/V or anxiety.
--- NOTE | 2020-07-01 04:30 | NUR ---
pt is asleep. rr even and unlabored no s/s distress
[2020-07-01 05:05] VITALS: BP 140/96
--- NOTE | 2020-07-01 06:41 | NUR ---
Patient sleeping on left side. No distress observed. Continue to monitor.
--- NOTE | 2020-07-01 07:30 | NUR ---
Patient ambulatory to BR, steady gait. Continue to monitor.
[2020-07-01] MEDS ORDERED: chlordiazePOXIDE 25mg capsule PO ONE (08:50)
--- NOTE | 2020-07-01 08:50 | NUR ---
Patient feels she is going through withdrawal symptoms. Patient having tremors. RN spoke to Dr Palmer who ordered Librium for patient. Continue to monitor.
--- NOTE | 2020-07-01 09:02 | NUR ---
Note undone in EDM - 07/01/20 at 0906 by SIERRA RN speaking to patient in her room. Patient denies feeling suicidal. Patient states "I just had a bad day." RN explained that when people have bad days they don't usually overdose. RN asked patient what is going on that made her feel like she needed to end her life. Patient stated "Nothing is going on." RN advised patient that she didn't have to speak to the nurse about what is going on with her but when she is evaluated by [facility] she will have to be honest about what is happening so they can really evaluate her. RN explained the 5150 process. Patient verbalized understanding. All questions were answered.
--- NOTE | 2020-07-01 10:50 | NUR ---
Patient sleeping on left side. No distress observed. Continue to monitor.
--- NOTE | 2020-07-01 12:49 | NUR ---
Patient eating lunch. No distress observed. Patient states sheis feeling better post Librium. Continue to monitor.
--- NOTE | 2020-07-01 13:50 | NUR ---
Patient sleeping on right side. No distress observed. Continue to monitor.
--- NOTE | 2020-07-01 15:29 | NUR ---
Dariana RESENDEZ, evaluating patient. Continue to monitor.
== END 2020-07-01 17:44 | disposition home or self-care (01) ==
LOC: ER 15:32
DX: F10.129 Alcohol abuse with intoxication, unspecified (principal); Z20.822 Contact with and (suspected) exposure to COVID-19; R45.851 Suicidal ideations; F31.9 Bipolar disorder, unspecified; F15.90 Other stimulant use, unspecified, uncomplicated; Z72.89 Other problems related to lifestyle; Z88.2 Allergy status to sulfonamides; Z88.8 Allergy status to other drugs, medicaments and biological substances; Z91.040 Latex allergy status; Z79.899 Other long term (current) drug therapy; Y90.8 Blood alcohol level of 240 mg/100 ml or more
CPT/HCPCS: 36415; 80053; 80305; 80320; 81001; 81025; 84443; 85025; 87426; 96361; 96374; 96375; 99285; J2405; J3411; J3490; J7030; 99284

== ENCOUNTER 2024-02-22 20:01 | Emergency (ER) | payer MEDICAID, OTHER ==
[~2024-02-22] VITALS: Ht 160 cm; Wt 79.5 kg
[~2024-02-22 20:01] MED LIST changes: -ARIP5TAB14 PO; +NO HOME MEDS
[2024-02-22] MEDS ORDERED: ARIP5TAB12 PO (20:34)
[2024-02-22 21:36] LABS: BASOPHILS % (AUTO) 0.7 % (0-1); EOSINOPHILS # (AUTO) 0.1 X10'3 (0-0.9); EOSINOPHILS % (AUTO) 1.2 % (0-6); HEMOGLOBIN 13.1 g/dl (12.0-16.0); LYMPHOCYTES % (AUTO) 28.9 % (21-51); MEAN CORPUSCULAR HEMOGLOBIN 28.9 PG (27.0-31.0); MEAN CORPUSCULAR HGB CONC 32.8 g/dL (33.0-36.5); MEAN CORPUSCULAR VOLUME 88.3 FL (78-98); MEAN PLATELET VOLUME 7.5 FL (7.4-10.4); MONOCYTES # (AUTO) 0.3 X10'3 (0-0.9); MONOCYTES % (AUTO) 4.8 % (2-12); NEUTROPHILS # (AUTO) 4.4 X10'3 (1.8-7.7); NEUTROPHILS % (AUTO) 64.4 % (42-75); PLATELET COUNT 321 X10'3 (140-440); RED BLOOD COUNT 4.53 X10'6 (4.20-5.60); RED CELL DISTRIBUTION WIDTH 15.1 % (11.5-14.5); WHITE BLOOD COUNT 6.9 X10'3 (4.5-11.0)
[2024-02-22 21:55] LABS: ALANINE AMINOTRANSFERASE 17 U/L (12-78); ALBUMIN 3.7 G/DL (3.4-5.0); ALKALINE PHOSPHATASE 51 IU/L (46-116); ANION GAP 7 (8-16); ASPARTATE AMINO TRANSFERASE 19 U/L (10-37); BILIRUBIN,TOTAL 0.4 MG/DL (0.1-1.0); BLOOD UREA NITROGEN 17 MG/DL (7-18); BUN/CREATININE RATIO 24.6 (10.0-20.0); CALCIUM 9.5 MG/DL (8.5-10.1); CHLORIDE 103 MMOL/L (99-107); CREATININE 0.69 MG/DL (0.40-0.90); GLUCOSE 77 MG/DL (70-104); POTASSIUM 3.9 MMOL/L (3.5-5.1); SODIUM 137 MMOL/L (135-145); TOTAL PROTEIN 7.4 G/DL (6.4-8.2); eCRCL 82 ML/MIN; eGFR 90 ML/MIN
[2024-02-22] MEDS: ibuprofen tablet 400 MG TABLET PO ONE (22:58)
[2024-02-23] MEDS: LORazepam 1 MG tablet PO ONE (04:34)
[2024-02-23 11:15] LABS: BILIRUBIN,URINE NEGATIVE (Neg); CLARITY,URINE CLOUDY (Clear); COLOR,URINE YELLOW (Yellow); GLUCOSE, URINE NEGATIVE (Neg); KETONES,URINE 15 mg/dl (Neg); LEUKOCYTE ESTERASE ,URINE NEGATIVE (Neg); NITRITES, URINE NEGATIVE (Neg); OCCULT BLOOD,URINE SMALL (Neg); PROTEIN,URINE NEGATIVE (Neg); UROBILINOGEN,URINE 0.2 E.U/dL (0.2-1.0)
[2024-02-23 11:20] LABS: UA COLLECTION TYPE CLN CATCH MIDSTREAM
[2024-02-23 11:23] LABS: BACTERIA,URINE FEW /HPF (Neg); MUCUS STRANDS MANY /LPF (Neg); SQUAMOUS EPITHELIAL CELL,UR MODERATE /LPF (FEW)
[2024-02-23 11:24] LABS: CAL OXALATE CRYSTALS 3+ /HPF (NEGATIVE)
[2024-02-23 11:28] LABS: URINE AMPHETAMINE SCREEN POSITIVE (Neg); URINE BARBITUATE SCREEN NEGATIVE (Neg); URINE BENZODIAZEPINES SCREEN NEGATIVE (Neg); URINE CANNABINOID SCREEN NEGATIVE (Neg); URINE COCAINE SCREEN NEGATIVE (Neg); URINE METHADONE SCREEN NEGATIVE (Neg); URINE OPIATE SCREEN NEGATIVE (Neg); URINE PHENCYCLIDINE SCREEN NEGATIVE (Neg)
[2024-02-23 11:30] VITALS: BP 126/70; PULSE 61; O2SAT 100
[2024-02-23 11:35] VITALS: RESP 15
[2024-02-23 12:15] VITALS: TEMP 97.9
== END 2024-02-23 16:45 | disposition home or self-care (01) ==
LOC: ER 20:02
DX: F41.9 Anxiety disorder, unspecified (principal); Z20.822 Contact with and (suspected) exposure to COVID-19; F32.A Depression, unspecified; F15.90 Other stimulant use, unspecified, uncomplicated; Z88.1 Allergy status to other antibiotic agents; Z88.2 Allergy status to sulfonamides; Z91.013 Allergy to seafood; Z79.899 Other long term (current) drug therapy
CPT/HCPCS: 36415; 80053; 80305; 81001; 84443; 85025; 87088; 87811; 99284